=== PATIENT | male | born 1955 | race Caucasian/White ===

== ENCOUNTER 2020-04-04 07:49 | Emergency (ER) | payer BC ==
[~2020-04-04] VITALS: Ht 180.3 cm; Wt 70.0 kg
[2020-04-04 07:52] VITALS: BP 118/82
[2020-04-04] MEDS ORDERED: LIDOcaine 2% 10ml TOPICAL JELLY (Urojet) TP ONE (08:00)
--- NOTE | 2020-04-04 08:41 | NUR ---
991ml clear urine out.
--- NOTE | 2020-04-04 08:57 | NUR ---
Dr. Castillo at bedside.
[2020-04-04] MEDS ORDERED: tamsulosin 0.4mg capsule PO SCH (09:10)
[2020-04-04] MEDS ORDERED: tamsulosin 0.4mg capsule PO ONE (09:10)
[2020-04-04] MEDS ORDERED: FLO0.4C PO (09:11)
== END 2020-04-04 09:43 | disposition home or self-care (01) ==
LOC: ER 07:50
DX: R33.9 Retention of urine, unspecified (principal); I10 Essential (primary) hypertension; Z90.89 Acquired absence of other organs; Z98.890 Other specified postprocedural states; Z72.89 Other problems related to lifestyle; Z79.899 Other long term (current) drug therapy
CPT/HCPCS: 51702; 99284

== ENCOUNTER 2023-06-09 09:41 | Emergency (ER) | payer BC ==
[~2023-06-09] VITALS: Ht 180.3 cm; Wt 100.0 kg
[2023-06-09 09:45] VITALS: BP 134/110
[2023-06-09] MEDS ORDERED: LIDOcaine 2% 10ml TOPICAL JELLY (Urojet) MM ONE ×2 (11:25→12:35)
[2023-06-09] MEDS ORDERED: LidoCAINE 2% Topical Jelly 11mL syringe MM ONE ×2 (11:30→12:35)
--- NOTE | 2023-06-09 11:39 | NUR ---
UNABLE TO PLACE A 16 OR 14 COUDE CATH. THERE WAS ALOT OF BLOOD AND BLOOD CLOTS VISIBLE DURING INSERTION ATTEMPT
[2023-06-09 11:52] LABS: BASOPHILS % (AUTO) 0 % (0-1); EOSINOPHILS % (AUTO) 0 % (0-6); HEMOGLOBIN 13.6 g/dl (14.0-17.9); LYMPHOCYTES # (AUTO) 0.4 X10'3 (1.1-4.8); LYMPHOCYTES % (AUTO) 2.8 % (21-51); MEAN CORPUSCULAR HEMOGLOBIN 27.2 PG (27.0-31.0); MEAN CORPUSCULAR HGB CONC 33.1 g/dL (33.0-36.5); MEAN CORPUSCULAR VOLUME 82.1 FL (78-98); MEAN PLATELET VOLUME 8.2 FL (7.4-10.4); MONOCYTES # (AUTO) 0.7 X10'3 (0-0.9); MONOCYTES % (AUTO) 5.6 % (2-12); NEUTROPHILS # (AUTO) 11.8 X10'3 (1.8-7.7); NEUTROPHILS % (AUTO) 91.6 % (42-75); PLATELET COUNT 239 X10'3 (140-440); RED CELL DISTRIBUTION WIDTH 18.1 % (11.5-14.5); WHITE BLOOD COUNT 12.9 X10'3 (4.5-11.0)
[2023-06-09 12:15] LABS: ALANINE AMINOTRANSFERASE 21 U/L (12-78); ALKALINE PHOSPHATASE 73 IU/L (46-116); ANION GAP 14 (8-16); ASPARTATE AMINO TRANSFERASE 20 U/L (10-37); BILIRUBIN,TOTAL 1.9 MG/DL (0.1-1.0); BLOOD UREA NITROGEN 19 MG/DL (7-18); BUN/CREATININE RATIO 16.8 (10.0-20.0); CALCIUM 9.8 MG/DL (8.5-10.1); CHLORIDE 104 MMOL/L (99-107); CREATININE 1.13 MG/DL (0.60-1.10); GLUCOSE 166 MG/DL (70-104); POTASSIUM 3.8 MMOL/L (3.5-5.1); SODIUM 140 MMOL/L (135-145); TOTAL CARBON DIOXIDE 21.9 MMOL/L (24-32); TOTAL PROTEIN 7.9 G/DL (6.4-8.2); eCRCL 68 ML/MIN; eGFR 65 ML/MIN
--- NOTE | 2023-06-09 12:36 | NUR ---
Attempt for cath placement after urojet norm sampson applied. Failed attempt x 2. paged urologist and on their way per provider Alejandrina WHALEN.
[2023-06-09] MEDS ORDERED: HYDROmorphone 1 mg/ml syringe IV ONE (12:55)
[2023-06-09 13:24] LABS: BILIRUBIN,URINE NEGATIVE (Neg); CLARITY,URINE CLOUDY (Clear); COLOR,URINE BROWN (Yellow); GLUCOSE, URINE NEGATIVE (Neg); KETONES,URINE NEGATIVE (Neg); LEUKOCYTE ESTERASE ,URINE TRACE (Neg); NITRITES, URINE NEGATIVE (Neg); OCCULT BLOOD,URINE LARGE (Neg); PROTEIN,URINE TRACE mg/dl (Neg); UROBILINOGEN,URINE 0.2 E.U/dL (0.2-1.0)
[2023-06-09 13:29] LABS: UA COLLECTION TYPE FOLEY CATH
[2023-06-09 13:31] LABS: BACTERIA,URINE 4+ /HPF (Neg); MUCUS STRANDS NONE SEEN /LPF (Neg); RBC,URINE TNTC /HPF (0-2); SQUAMOUS EPITHELIAL CELL,UR NONE SEEN /LPF (FEW)
[2023-06-09] MEDS ORDERED: CefTRIAXone 1000mg IM Kit (w/lidocaine diluent) IM ONE (14:20)
[2023-06-09] MEDS ORDERED: AMOX-580 PO (14:24)
[2023-06-09 15:37] VITALS: RESP 14; TEMP 97.8
[2023-06-09 15:46] VITALS: PULSE 86; O2SAT 96
== END 2023-06-09 15:44 | disposition home or self-care (01) ==
LOC: ER 09:42
DX: N39.0 Urinary tract infection, site not specified (principal); R33.9 Retention of urine, unspecified; I10 Essential (primary) hypertension; N40.0 Benign prostatic hyperplasia without lower urinary tract symptoms; Z72.89 Other problems related to lifestyle; Z79.2 Long term (current) use of antibiotics
CPT/HCPCS: 36415; 51702; 80053; 81001; 85025; 87077; 87088; 87186; 96372; 99284; C1758; J0696; A4314; A4338; A4340

== ENCOUNTER 2023-08-08 05:05 | Emergency (ER) | payer BC, MEDICARE ==
[~2023-08-08] VITALS: Ht 180.3 cm; Wt 94.8 kg
[2023-08-08 05:07] VITALS: TEMP 98.4
[2023-08-08] MEDS ORDERED: piperacillin/tazo 4.5gm/100ml 100 ML IV STA (06:15)
[2023-08-08] MEDS ORDERED: DOXY-356 PO (06:22)
[2023-08-08] MEDS ORDERED: DOXY100C77 PO (06:23)
[2023-08-08 09:25] VITALS: BP 113/65; PULSE 67; RESP 18; O2SAT 99
[2023-08-09] MEDS ORDERED: FLO0.4C PO (04:38)
[2023-08-09] MEDS ORDERED: D-MA1POW PO (04:38)
[2023-08-09] MEDS ORDERED: ASCO-100 PO (04:38)
== END 2023-08-08 09:28 | disposition home or self-care (01) ==
LOC: ER 05:05
DX: L03.011 Cellulitis of right finger (principal); I10 Essential (primary) hypertension; Z72.89 Other problems related to lifestyle; Z79.2 Long term (current) use of antibiotics
CPT/HCPCS: 96365; 96366; 99284; J2543; 96375

== ENCOUNTER 2023-08-08 16:56 | Inpatient (IN) | payer BC, MEDICARE ==
[~2023-08-08] VITALS: Ht 180.3 cm; Wt 94.5 kg
[~2023-08-08 16:56] MED LIST: DOXY-356 PO; DOXY100C77 PO
[2023-08-08 18:43] LABS: ALANINE AMINOTRANSFERASE 23 U/L (12-78); ALBUMIN 3.6 G/DL (3.4-5.0); ALKALINE PHOSPHATASE 73 IU/L (46-116); ANION GAP 8 (8-16); ASPARTATE AMINO TRANSFERASE 18 U/L (10-37); BILIRUBIN,TOTAL 1.9 MG/DL (0.1-1.0); BLOOD UREA NITROGEN 16 MG/DL (7-18); BUN/CREATININE RATIO 16.3 (10.0-20.0); CALCIUM 9.2 MG/DL (8.5-10.1); CHLORIDE 102 MMOL/L (99-107); CREATININE 0.98 MG/DL (0.60-1.10); GLUCOSE 103 MG/DL (70-104); POTASSIUM 3.5 MMOL/L (3.5-5.1); SODIUM 136 MMOL/L (135-145); TOTAL CARBON DIOXIDE 26.2 MMOL/L (24-32); TOTAL PROTEIN 7.3 G/DL (6.4-8.2); eCRCL 77 ML/MIN; eGFR 76 ML/MIN
[2023-08-08] MEDS ORDERED: ampicillin/sulbac 3gm/NS 100ml 100 ML IV STA (20:26)
[2023-08-08 20:29] LABS: BASOPHILS % (AUTO) 0.4 % (0-1); EOSINOPHILS % (AUTO) 0.5 % (0-6); HEMATOCRIT 39.1 % (42.0-52.0); HEMOGLOBIN 13.1 g/dl (14.0-17.9); LYMPHOCYTES # (AUTO) 1.1 X10'3 (1.1-4.8); LYMPHOCYTES % (AUTO) 14.1 % (21-51); MEAN CORPUSCULAR HEMOGLOBIN 27.9 PG (27.0-31.0); MEAN CORPUSCULAR HGB CONC 33.6 g/dL (33.0-36.5); MEAN CORPUSCULAR VOLUME 83.1 FL (78-98); MEAN PLATELET VOLUME 8.9 FL (7.4-10.4); MONOCYTES # (AUTO) 1.4 X10'3 (0-0.9); MONOCYTES % (AUTO) 16.8 % (2-12); NEUTROPHILS # (AUTO) 5.5 X10'3 (1.8-7.7); NEUTROPHILS % (AUTO) 68.2 % (42-75); PLATELET COUNT 189 X10'3 (140-440); RED BLOOD COUNT 4.71 X10'6 (4.70-6.10); RED CELL DISTRIBUTION WIDTH 16.3 % (11.5-14.5)
[2023-08-08] MEDS ORDERED: sulfamethoxazole/trimethoprim DS (800/160mg) tablet PO ONE (20:30)
[2023-08-08 20:49] LABS: BILIRUBIN,URINE NEGATIVE (Neg); CLARITY,URINE CLEAR (Clear); COLOR,URINE YELLOW (Yellow); GLUCOSE, URINE NEGATIVE (Neg); KETONES,URINE NEGATIVE (Neg); LEUKOCYTE ESTERASE ,URINE TRACE (Neg); NITRITES, URINE NEGATIVE (Neg); OCCULT BLOOD,URINE NEGATIVE (Neg); PH,URINE 5.5 (4.8-8.0); PROTEIN,URINE NEGATIVE (Neg); UROBILINOGEN,URINE 0.2 E.U/dL (0.2-1.0)
[2023-08-08 20:54] LABS: UA COLLECTION TYPE CLN CATCH MIDSTREAM
[2023-08-08 20:56] LABS: MUCUS STRANDS MANY /LPF (Neg); SQUAMOUS EPITHELIAL CELL,UR FEW /LPF (FEW)
[2023-08-08 20:58] LABS: BACTERIA,URINE FEW /HPF (Neg)
[2023-08-08 21:00] LABS: RENAL CELLS, URINE FEW /HPF
[2023-08-08] MEDS ORDERED: temazepam 15mg capsule PO PRN (21:00)
[2023-08-08] MEDS ORDERED: potassium Cl 20 mEq SR tablet PO PRN ×2 (21:50)
[2023-08-08] MEDS ORDERED: potassium Cl 40MEQ/1/2NS 520ml 520 ML IV PRN (21:50)
[2023-08-08] MEDS ORDERED: morphine 2 MG/ML inj. syringe IV PRN (21:50)
[2023-08-08] MEDS ORDERED: ondansetron/PF 4mg/2ml inj IV PRN (21:50)
[2023-08-08] MEDS ORDERED: HYDROcodone/acetaminophen 5mg/325mg tablet PO PRN (21:50)
[2023-08-08] MEDS ORDERED: acetaminophen 325mg tablet PO PRN ×2 (21:50)
[2023-08-08] MEDS ORDERED: magnesium 2GM in 50ml NS 50 ML IV PRN (21:50)
[2023-08-08] MEDS ORDERED: magnesium Cl slow-release 64mg tablet PO PRN (21:50)
[2023-08-08] MEDS ORDERED: magnesium 4gm in 100ml NS 100 ML IV PRN (21:50)
[2023-08-08] MEDS: normal saline 1000ml 1,000 ML IV SCH (22:52)
[2023-08-08] MEDS: pantoprazole 40mg Tablet.DR PO SCH (22:56)
[2023-08-08] MEDS: doxycycline inj 100 MG in normal saline 100ml IV soln 100 ML IV SCH (23:22)
[2023-08-09] VITALS (11 sets, daily range): BP systolic 127–137; BP diastolic 59–83; PULSE 52–72; RESP 16–25; TEMP 98–98.6; O2SAT 96–99
[2023-08-09] MEDS ORDERED: D-MA1POW PO (04:38)
[2023-08-09] MEDS ORDERED: ASCO-100 PO (04:38)
[2023-08-09] MEDS ORDERED: FLO0.4C PO (04:38)
[2023-08-09 06:44] LABS: BASOPHILS % (AUTO) 0.3 % (0-1); EOSINOPHILS # (AUTO) 0.1 X10'3 (0-0.9); EOSINOPHILS % (AUTO) 1.7 % (0-6); HEMATOCRIT 35.3 % (42.0-52.0); HEMOGLOBIN 11.7 g/dl (14.0-17.9); LYMPHOCYTES % (AUTO) 20.9 % (21-51); MEAN CORPUSCULAR HEMOGLOBIN 27.4 PG (27.0-31.0); MEAN CORPUSCULAR HGB CONC 33.2 g/dL (33.0-36.5); MEAN CORPUSCULAR VOLUME 82.7 FL (78-98); MEAN PLATELET VOLUME 8.2 FL (7.4-10.4); MONOCYTES # (AUTO) 0.9 X10'3 (0-0.9); MONOCYTES % (AUTO) 18.9 % (2-12); NEUTROPHILS # (AUTO) 2.8 X10'3 (1.8-7.7); NEUTROPHILS % (AUTO) 58.2 % (42-75); PLATELET COUNT 169 X10'3 (140-440); RED BLOOD COUNT 4.26 X10'6 (4.70-6.10); RED CELL DISTRIBUTION WIDTH 16.2 % (11.5-14.5); WHITE BLOOD COUNT 4.8 X10'3 (4.5-11.0)
[2023-08-09 06:58] LABS: ALANINE AMINOTRANSFERASE 16 U/L (12-78); ALBUMIN/GLOBULIN RATIO 0.9 (1.1-1.5); ALKALINE PHOSPHATASE 59 IU/L (46-116); ANION GAP 7 (8-16); ASPARTATE AMINO TRANSFERASE 13 U/L (10-37); BILIRUBIN,TOTAL 1.3 MG/DL (0.1-1.0); BLOOD UREA NITROGEN 14 MG/DL (7-18); BUN/CREATININE RATIO 16.5 (10.0-20.0); CALCIUM 8.6 MG/DL (8.5-10.1); CHLORIDE 105 MMOL/L (99-107); CREATININE 0.85 MG/DL (0.60-1.10); GLUCOSE 97 MG/DL (70-104); POTASSIUM 3.6 MMOL/L (3.5-5.1); SODIUM 137 MMOL/L (135-145); TOTAL PROTEIN 6.4 G/DL (6.4-8.2); eCRCL 89 ML/MIN; eGFR 90 ML/MIN
[2023-08-09 07:39] LABS: ANISOCYTOSIS 1+; PLATELET ESTIMATE NORMAL; TOTAL CELLS COUNTED 100
[2023-08-09 07:40] LABS: BURR CELLS FEW; ELLIPTOCYTES FEW; TEAR DROP CELLS FEW
[2023-08-09] MEDS: normal saline 1000ml 1,000 ML IV SCH ×3 (07:50→22:24)
[2023-08-09] MEDS: pantoprazole 40mg Tablet.DR PO SCH (08:48)
[2023-08-09] MEDS: doxycycline inj 100 MG in normal saline 100ml IV soln 100 ML IV SCH ×2 (09:49→20:24)
[2023-08-09] MEDS ORDERED: TETanus/Pertussis (Acell)/Diphther VAC/PF (Tdap-Adult) 0.5ml syringe IMVAC ONE (19:30)
[2023-08-09] MEDS ORDERED: enoxaparin 40mg/0.4ml syringe SQ SCH (20:00)
[2023-08-10 02:46] VITALS: PULSE 61; RESP 19; O2SAT 99
[2023-08-10 06:00] VITALS: BP 138/87; PULSE 53; RESP 18; TEMP 97.5; O2SAT 98
[2023-08-10 06:25] LABS: BASOPHILS % (AUTO) 0.8 % (0-1); EOSINOPHILS # (AUTO) 0.2 X10'3 (0-0.9); EOSINOPHILS % (AUTO) 4.3 % (0-6); HEMATOCRIT 39.9 % (42.0-52.0); HEMOGLOBIN 13.3 g/dl (14.0-17.9); LYMPHOCYTES # (AUTO) 1.3 X10'3 (1.1-4.8); LYMPHOCYTES % (AUTO) 28.4 % (21-51); MEAN CORPUSCULAR HEMOGLOBIN 27.9 PG (27.0-31.0); MEAN CORPUSCULAR HGB CONC 33.4 g/dL (33.0-36.5); MEAN CORPUSCULAR VOLUME 83.6 FL (78-98); MEAN PLATELET VOLUME 8.4 FL (7.4-10.4); MONOCYTES # (AUTO) 0.7 X10'3 (0-0.9); MONOCYTES % (AUTO) 15.2 % (2-12); NEUTROPHILS # (AUTO) 2.4 X10'3 (1.8-7.7); NEUTROPHILS % (AUTO) 51.3 % (42-75); PLATELET COUNT 194 X10'3 (140-440); RED BLOOD COUNT 4.78 X10'6 (4.70-6.10); RED CELL DISTRIBUTION WIDTH 16.1 % (11.5-14.5); WHITE BLOOD COUNT 4.6 X10'3 (4.5-11.0)
[2023-08-10 06:43] LABS: ALANINE AMINOTRANSFERASE 20 U/L (12-78); ALBUMIN 3.3 G/DL (3.4-5.0); ALBUMIN/GLOBULIN RATIO 0.9 (1.1-1.5); ALKALINE PHOSPHATASE 63 IU/L (46-116); ANION GAP 6 (8-16); ASPARTATE AMINO TRANSFERASE 14 U/L (10-37); BILIRUBIN,TOTAL 1.4 MG/DL (0.1-1.0); BLOOD UREA NITROGEN 15 MG/DL (7-18); BUN/CREATININE RATIO 16.3 (10.0-20.0); CALCIUM 9.3 MG/DL (8.5-10.1); CHLORIDE 105 MMOL/L (99-107); CREATININE 0.92 MG/DL (0.60-1.10); GLUCOSE 106 MG/DL (70-104); POTASSIUM 4.4 MMOL/L (3.5-5.1); SODIUM 137 MMOL/L (135-145); TOTAL CARBON DIOXIDE 26.1 MMOL/L (24-32); TOTAL PROTEIN 7.1 G/DL (6.4-8.2); eCRCL 82 ML/MIN; eGFR 82 ML/MIN
[2023-08-10 07:00] VITALS: RESP 19
[2023-08-10] MEDS: pantoprazole 40mg Tablet.DR PO SCH (08:05)
[2023-08-10] MEDS: doxycycline inj 100 MG in normal saline 100ml IV soln 100 ML IV SCH (08:05)
== END 2023-08-10 13:04 | disposition home or self-care (01) | DRG 603 ==
LOC: ER 16:58 → OBSVTOIN 21:57 → ED HOLD 21:57 → ORTHO 4S 08-09 03:45
PROVIDERS: ADMIT Internal Medicine; ATTEND Internal Medicine
DX: L03.113 Cellulitis of right upper limb (principal); N39.0 Urinary tract infection, site not specified; I10 Essential (primary) hypertension; N40.0 Benign prostatic hyperplasia without lower urinary tract symptoms; L40.9 Psoriasis, unspecified; K21.9 Gastro-esophageal reflux disease without esophagitis; Z79.899 Other long term (current) drug therapy
CPT/HCPCS: 36415; 73130; 80053; 81001; 83605; 84145; 85007; 85025; 87040; 87081; 87088; 90715; 94660; 94760; 99285; G0378; J0295; J1650; J3490; J7030